=== PATIENT | female | born 1965 | race Caucasian/White ===

== ENCOUNTER → 2022-01-30 07:02 | Outpatient (CLI) | payer OTHER, SELFPAY ==
--- NOTE | 2022-01-30 07:15 | MRI_ITS ---
STUDY: MRI ABDOMEN WITH AND WITHOUT CONTRAST REASON FOR EXAM: Female, 56 years old. LIVER LESION, F/U CT TECHNIQUE: Standardized fat and water weighted pulse sequences were obtained in all 3 orthogonal planes post contrast administration. dotarem 20ml IV was administered for the contrast portion of the examination. COMPARISON: CT scan abdomen and pelvis obtained 12/05/2021. FINDINGS: The visualized lung bases are unremarkable. The visualized portions of the heart are within normal limits. A 1.3 cm area of low signal intensity is visualized in the anterolateral aspect of the right lobe of the liver, segment 8 that was visualized on the prior CT scan this is best demonstrated on axial series 3-2 image 14, on the LAVA series, 1000, 1003 and 1004 on image 56/96 there is gradual increased signal intensity visualized suggestive of increased enhancement suggestive of a hemangioma. No evidence of intrahepatic biliary dilatation is seen. Surgical clips visualized in the gallbladder fossa consistent there is a cholecystectomy. No evidence of extrahepatic biliary dilatation is seen. Normal spleen. Normal pancreas. Normal bilateral adrenal glands. Normal right kidney. Normal left kidney. Small type I hiatus hernia is seen. Normal visualized stomach. Normal visualized small intestine. Normal visualized colon. Normal abdominal aorta. Normal inferior vena cava. Normal retroperitoneum. Normal abdominal wall. Normal osseous structures. MRI/MRI Abd WITH and W/O Contrast IMPRESSION: 1.2 cm right hepatic lobe lesion demonstrates gradual enhancement suggestive of a hemangioma. Electronically Signed: Perez Regalado MD at 14:58 EDT ,
== END ==
DX: K76.9 Liver disease, unspecified (principal)
CPT/HCPCS: 74183; A9575

== ENCOUNTER → 2022-03-06 | Outpatient (CLI) | payer OTHER, SELFPAY | END | disposition home or self-care (01) | PROVIDERS: Referring Provider Obstetrics & Gynecology; Visit Provider Obstetrics & Gynecology | DX: N83.202 Unspecified ovarian cyst, left side (principal) | CPT/HCPCS: 36415; 86304 ==

== ENCOUNTER → 2022-03-15 | Outpatient (CLI) | payer OTHER, SELFPAY ==
--- NOTE | 2022-03-15 11:28 | US_ITS ---
STUDY: ULTRASOUND OF THE FEMALE PELVIS - COMPLETE REASON FOR EXAM: Female, 56 years old. L ovarian cyst LMP: The patient is postmenopausal. TECHNIQUE: Transabdominal and Transvaginal TECHNICAL QUALITY: Adequate. COMPARISON: None. FINDINGS: The uterus is anteverted and is in a midline position. The uterus measures 8.7 cm x 4.7 cm x 3.9 cm. Normal uterine cervix. The endometrium measures 5 mm in thickness, and is hyperechoic. There is no demonstrated endometrial mass. There is a 1.5 cm x 1.3 cm x 1.3 cm fibroid in the body of the uterus. Myometrial echotexture is heterogeneous in appearance. I.U.D. - The patient does not have an I.U.D. The right ovary is visualized. The right ovary measures 1.4 cm x 1.7 cm x 1.3 cm. There is no right ovarian cyst or ovarian mass. There is no visualized right adnexal mass or complex lesion. There is normal arterial and normal venous vascularity. The left ovary is visualized. The left ovary measures 4.4 cm x 4.3 cm x 4.1 cm. There is a 3.1 cm x 4 cm x 3.1 cm left ovarian cyst. There is no visualized left adnexal mass or complex lesion. There is normal arterial and normal venous vascularity. There is no fluid in the cul-de-sac. The pre void volume of the bladder was 58 ml. US/Pelvic (Non ) IMPRESSION: 3.1 cm x 4 cm x 3.1 cm left ovarian cyst. Heterogeneous appearance of the uterus with fibroid change and small uterine fibroid. Electronically Signed: Robert Houser MD at 13:01 EDT ,
--- NOTE | 2022-03-15 11:28 | US_ITS ---
STUDY: ULTRASOUND OF THE FEMALE PELVIS - COMPLETE REASON FOR EXAM: Female, 56 years old. L ovarian cyst LMP: The patient is postmenopausal. TECHNIQUE: Transabdominal and Transvaginal TECHNICAL QUALITY: Adequate. COMPARISON: None. FINDINGS: The uterus is anteverted and is in a midline position. The uterus measures 8.7 cm x 4.7 cm x 3.9 cm. Normal uterine cervix. The endometrium measures 5 mm in thickness, and is hyperechoic. There is no demonstrated endometrial mass. There is a 1.5 cm x 1.3 cm x 1.3 cm fibroid in the body of the uterus. Myometrial echotexture is heterogeneous in appearance. I.U.D. - The patient does not have an I.U.D. The right ovary is visualized. The right ovary measures 1.4 cm x 1.7 cm x 1.3 cm. There is no right ovarian cyst or ovarian mass. There is no visualized right adnexal mass or complex lesion. There is normal arterial and normal venous vascularity. The left ovary is visualized. The left ovary measures 4.4 cm x 4.3 cm x 4.1 cm. There is a 3.1 cm x 4 cm x 3.1 cm left ovarian cyst. There is no visualized left adnexal mass or complex lesion. There is normal arterial and normal venous vascularity. There is no fluid in the cul-de-sac. The pre void volume of the bladder was 58 ml. US/Transvaginal Non- IMPRESSION: 3.1 cm x 4 cm x 3.1 cm left ovarian cyst. Heterogeneous appearance of the uterus with fibroid change and small uterine fibroid. Electronically Signed: Robert Houser MD at 13:01 EDT ,
== END | disposition home or self-care (01) ==
PROVIDERS: Referring Provider Obstetrics & Gynecology; Visit Provider Obstetrics & Gynecology
DX: N83.202 Unspecified ovarian cyst, left side (principal)
CPT/HCPCS: 76830; 76856

== ENCOUNTER 2022-04-04 12:30 | Day surgery (SDC) | payer OTHER, SELFPAY ==
[2022-04-04] VITALS (7 sets, daily range): BP systolic 129–179; BP diastolic 67–89; PULSE 55–67; RESP 14–16; TEMP 36.1–36.3; O2SAT 97–100; BMI 38.0
--- NOTE | 2022-04-04 07:42 | PCM.HP.BLA ---
History and Physical Intake Visit Reasons:?CONSULT D&C Chief Complaint: D&C consult [employer] Required: No Is patient in pain?: No Allergies adhesive tape Adverse Reaction (Verified 03/06/22 09:43) UNKNOWNbupropion Adverse Reaction (Verified 03/06/22 09:43) UNKNOWNclarithromycin [From Biaxin] Adverse Reaction (Verified 03/06/22 09:43) UNKNOWNdoxycycline Adverse Reaction (Verified 03/06/22 09:43) UNKNOWNmorphine Adverse Reaction (Verified 03/06/22 09:43) UNKNOWN Medications aspirin 81 mg tablet,delayed release 81 mg PO DAILY 02/08/22 [History Confirmed 02/15/22] atorvastatin 40 mg tablet 40 mg PO QHS 02/08/22 [History Confirmed 03/06/22] citalopram 40 mg tablet 40 mg PO DAILY 02/08/22 [History Confirmed 03/06/22] levothyroxine 100 mcg capsule 100 mcg PO DAILY 02/08/22 [History Confirmed 03/06/22] Is last menstrual period known: No Post menopausal: Yes Patient : No : No PFSH Medical History?(Updated 03/06/22 @ 10:[address] Kristina Urban MD) Anxiety Atherosclerosis of coronary artery without angina pectoris Elevated LFTs GERD (gastroesophageal reflux disease) Hyperlipidemia Hypothyroidism Liver lesion, left lobe Obesity Shingles Surgical History?(Updated 03/06/22 @ 10:[address] Kristina Urban MD) H/O hernia repair History of appendectomy History of left heart catheterization (04/10/18) Hx of cholecystectomy Family History?(Updated 03/06/22 @ 09:46 by Mayra Martínez) Father Diabetes Heart diseaseMother Diabetes Heart disease Social History?(Updated 03/06/22 @ 09:47 by Mayra Martínez) Smoking Status:? Never smoker alcohol intake:? never substance use type:? does not use caffeine:? Yes what type of physical activity do you participate in:? none seatbelt use:? always do you feel safe at home:? Yes additional social history:? 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 ? HPI CONSULT D&C Details: TAMARA OSMAN is a 56 year old who presents for consultation.? she preivously had evluation by [place] and then due to insurance changes is here for evaluation.? she has a uterus with a polyp and small fibroids, and a left 4 cm ovarian cyst. she has been postmenopausal for 2 years.? she originally was imaged due to side pain which was from shingles and the ct showed the abnormalities and then had an us to confirm.? she denies any pain or vb no abnormal discharge.? she was planning a d and c previously.? her ovarian cyst has been stable.? she has mild menopausal symptoms. Female Reproductive History Menopausal Symptoms: No night sweats Pregancy History ? ? ? 1 ? Elective abortions ? Hx Para ? ? ? 1 ? Spontaneous abortions ? Hx # Term Pregnancies ? Ectopic pregnancies ? Hx # Pregnancies ? Multiple births ? # of living children ? Past Pregnancies Del. Date Name GA/Weeks Outcome Route Bth Weight [facility] Vivienne ? live - full term ? ROS Const Constitutional: Denies fatigue, night sweats, weight gain or weight loss ENT ENT: Reports system reviewed and no additional complaints, except as documented Cardio Card: Denies chest pain Resp Resp: Denies cough or dyspnea GI GI: Reports as per HPI; Denies abdominal pain, constipation, nausea or vomiting : Reports urinary incontinence; Denies nipple discharge, urinary frequency, urinary hesitancy, urinary urgency, vaginal discharge, vaginal dryness, vaginal odor or vaginal pruritus Musc Musc: Denies arthralgias, back pain or muscle weakness Skin Skin/Breast: Denies alopecia, change in hair, dry skin, breast mass, breast pain, breast skin changes or nipple discharge Neuro Neuro: Reports system reviewed and no additional complaints, except as documented Psych Psych: Reports system reviewed and no additional complaints, except as documented Endo Endo: Reports heat intolerance; Denies cold intolerance, excessive sweating or polydipsia Ayush/Lymph Hematologic/Lymphatic: Denies easy bleeding, Reports easy bruising and Denies lymphadenopathy Exam Const General: cooperative, healthy appearing, comfortable, no acute distress and well developed Orientation: alert [facility] Head: normal to inspection and normocephalic Ears: hearing grossly normal bilaterally and external ears normal Nose: external nose normal and nares normal Face and sinus: normal facial exam Neck Neck: normal visual inspection and no lymphadenopathy Thyroid: thyroid normal Chest Chest palpation & inspection: normal inspection of the chest Resp Effort & Inspection: normal respiratory effort Auscultation: clear to auscultation bilaterally Cardio Rate: regular rate Rhythm: regular rhythm Heart Sounds: S1 normal and S2 normal GI Inspection: normal to inspection and non-distended Palpation: soft and no hepatosplenomegaly Musc Other: gross motor intact no deficits, full bilateral strength Skin General: no rashes or lesions noted Neuro General: patient alert, patient awake, moves all extremities and no focal motor deficits Motor: muscle tone normal throughout Extrem General: normal to inspection and no pedal edema Psych Appearance: grossly normal Mental Status: mental status grossly normal Affect: normal affect Speech and Movement: speech and movement normal Coding Level of Care Code Off vis,new,level 4 Diagnoses Endometrial polyp? N84.0 Left ovarian cyst? N83.202 Assessment and Plan Assessment and Plan (1) Endometrial polyp: ?Status:?Acute ?Comment: plan d and c hysteroscopy possible symphion (2) Left ovarian cyst: ?Status:?Acute ?Comment: repeat us. ca125 ordered.? asymptomatic.? exp management. ? ? ? Orders:?Orders: ? Cancer Antigen 125 Today ? ? ? Pelvic (Non ) Today ? ? ? Transvaginal Non- Today ?Plan - Dr. Kristina Urban MD: After discussing the patient's diagnosis and treatment plan options, patient wishes to proceed with surgical management.? I have discussed with the patient the risks, benefits, and alternatives of the procedure which include but are not limited to risks of anesthesia, bleeding, infection, possible damage to bowel, bladder, or surrounding vasculature which could lead to additional surgery to evaluate any complications.? Patient agrees to procedure and wishes to proceed.? ACOG/uptodate references given for additional information regarding procedure.? UPDATE- I have seen the patient and performed any clinically relevant updates to the history and physical exam. Kristina Urban MD
[2022-04-04 13:08] LABS: Absolute Lymphocyte Count 2.35 X10^3/uL (0.83-4.51); Absolute Neutrophil Count 3.2 X10^3/uL (2.0-7.7); Basophil# 0.06 X10^3/uL; Basophil% 0.9 % (0-1); Eosinophil# 0.29 X10^3/uL; Eosinophils% 4.6 % (0-5); Hemoglobin 13.1 g/dL (12.0-15.0); Lymphocyte # 2.35 X10^3/ul (0.83-4.51); Lymphocyte % 36.9 % (19-41); Mean Corp Hgb Conc 33.6 g/dL (32-36); Mean Corpuscular Hgb 29.4 pg (27.0-32.0); Mean Corpuscular Volume 87.4 fL (81-99); Monocyte# 0.44 X10^3/uL; Monocyte% 6.9 % (0-10); NRBC Flagged by Analyzer 0 % (0-5); Neutrophil # 3.22 X10^3/uL (2.7-7.7); Neutrophil % 50.5 % (47-70); POSITIVE MORPHOLOGY YES; Platelet Count 234 K/mm3 (150-450); RBC Distribution Width CV 13.2 % (11.6-14.6); RBC Distribution Width SD 42.3 fl (35.1-43.9); Red Blood Count 4.46 M/mm3 (4.2-5.4); White Blood Count 6.4 K/mm3 (4.4-11.0)
[2022-04-04] MEDS: Lactated Ringers 1,000 ML 125 ML IV (13:10)
[2022-04-04 13:11] LABS: Differential Indicated SCAN CRITERIA MET
[2022-04-04 13:24] LABS: AST(SGOT) 22 U/L (15-37); Alanine Aminotransfer ALT/SGPT 44 U/L (13-56); Albumin, Serum 3.4 g/dL (3.2-5.0); Alkaline Phosphatase 117 U/L (45-117); Anion Gap 5 (5-15); BUN 23 mg/dL (7-18); BUN/Creat Ratio 29.7 RATIO (10-20); Calcium,Total 8.6 mg/dL (8.5-10.1); Chloride 110 mmol/L (98-107); Creatinine, Serum 0.78 mg/dL (0.55-1.02); EST Glomerular Filtration Rate 81 mL/min (>60); Est Glom Filt Rate - Afr Amer 98 mL/min (>60); Estimated Creatinine Clearance 65.03 ml/min; Globulin 3.4 g/dL (2.2-4.2); Glucose 99 mg/dL (74-106); Potassium 4.1 mmol/L (3.5-5.1); Protein, Total 6.8 g/dL (6.4-8.2); Sodium Level 141 mmol/L (136-145)
[2022-04-04 13:32] LABS: Platelet Estimate ADEQUATE (ADEQ); Red Cell Morphology NORM C+C NORMAL (NORM C&C)
--- NOTE | 2022-04-04 14:05 | EMB_PTH ---
PATIENT: TAMARA OSMAN LOC: [facility] – [place] U#:[id number] AGE/SX: 56/F ROOM: RE04/04/[address]: Dr. Kristina Urban MD : 1965 BED: DIS: 04/04/2022 SPEC #: [id number] RECD: 04/05/22 06:47 STATUS: NEISHA MORRIS #: [id number] ELIZABETH: 04/04/22 14:[address]: Kristina Urban DEPT: SURGICAL PATHOLOGY RECD BY: Afia Wu Tissues: A - Endometrium, NOS B - CYST Procedures: Surgery Specimen Level IV HEADER OPERATION: Hysteroscopy, D & C Symphion, excision of vaginal wall cyst PRE-OP DIAGNOSIS: Endometrial polyp TISSUE SUBMITTED: A ? Endometrial curettings, B ? Vaginal wall cyst MICROSCOPIC DIAGNOSIS A. Endometrial curettings: A fragment of myometrium with scant minute fragments of benign endometrial tissue. See comment. B. Vaginal wall cyst, excision: Benign epithelial cyst. CAS:[email or web address] 04/06/2022 COMMENT A. Clinical correlation and appropriate follow up are necessary. MICROSCOPIC DESCRIPTION Slides are reviewed. GROSS DESCRIPTION A - Received in fixative is one container labeled with the patient's name and designated endometrial curettings. The specimen consists of multiple irregular fragments of light perry soft tissue that in aggregate measure 1.7 x 0.5 x 0.2 cm. The specimen is totally submitted in one cassette. B - Received in fixative is one container labeled with the patient's name and designated vaginal wall cyst. The specimen consists of two irregular fragments of glistening perry mucosa that in aggregate measure 2.5 x 1 x 0.3 cm. The specimen is totally submitted in one cassette. / AM:maddi 04/05/2022 TC:5 CPT: 79742 x2
--- NOTE | 2022-04-04 15:29 | OP.PCM_ITS ---
Problems Associated Problem List Diagnoses (1) Endometrial polyp: (2) Left ovarian cyst: (3) Vaginal cyst: Report of Operation Date of Procedure: 04/04/22 Pre-Operative Diagnosis: see problem list Post-Operative Diagnosis: same Surgery/Procedure Performed:: D&C hysteroscopy removal vaginal cyst cystoscopy Description of Surgical Findings:: 4 cm anterior left vaginal wall cyst. green chain puller: None Type of Anesthesia: Local MAC Special Medications: none Specimen's removed: EMC vaginal cyst wall Drains: none Estimated Blood Loss (mL): 50 Fluids Replaced: crystalloid Description of Procedure: Patient was prepped and draped in a normal sterile fashion under MAC anesthesia. A weighted speculum was placed in the vagina and the anterior lip of the cervix was grasped with a single-tooth tenaculum. A paracervical block was placed with 1% lidocaine. Cervix was progressively dilated to allow passage of a 5 mm hysteroscope. The lining was fully visualized and noted to have no significant abnormality as it was noted to be atrophic. Uterine sounded to 8 cm. Curettage was performed and small amount of tissue removed, sent to pathology. Cystoscopy was then performed by filling the bladder and visualizing ureteral spray bilaterally seeing no gross abnormalities although there was a mild appearance of petechiae over some areas of the bladder. The urethra was visualized at full length to make sure there was no communication with the vaginal cyst that had been visualized and none were seen. The vaginal cyst was injected with lidocaine and then a longitudinal incision was made and it was unroofed and marsupialized and partially excised and then the vaginal mucosa was stitched all across circumferentially to obtain hemostasis. All instruments were removed from the vagina and excellent hemostasis was noted. Patient was awoken and taken to recovery in stable condition. Grafts/Implants Used: none Complications none Admit VTE Documentation VTE Present on Admission: No VTE Mechan Device Prophylaxis: SCD's Multi Select Codes Urinary/Genital Urinary/Genital CPT Codes: 22855 Cystoscopy, 75369 REMOVE VAGINA LESION (13987) and 06461 Hysteroscopy,EMC, Polypectomy
--- NOTE | 2022-04-04 15:31 | DCINST_ITS ---
Discharge Instructions Procedure D&C Diet Discharge Diet: No restrictions Activity Discharge Activity: Return to Normal Activity, May Shower and May Take a Tub Bath (after 1 week) May resume sexual activity in: 1-2 weeks Weight Bearing Status: Weight bearing as tolerated Lifting Restrictions: none Dressing / Incision Call your doctor if you observe: Fever of 101 or Higher, Using more than 1 pad per hour, Shortness of breath and Uncontrolled pain Follow Up Care Please Follow Up With: Kristina Urban MD When: Call [phone] to schedule appointment. Test Results: Test results from this visit will be discussed in further detail at your follow- up appointment, if applicable. Discharge Plan Admission Attending Provider: Kristina Urban Primary Care Provider: CHAPINCITO ESCALANTE Discharge Orders/Prescriptions Prescriptions: New oxycodone-acetaminophen [Endocet] 5-325 mg tablet 1 tab PO Q4H PRN (Reason: pain) 7 Days Qty: 10 0RF ibuprofen [ibuprofen] 600 mg tablet 600 mg PO Q6H PRN PRN (Reason: fever or pain) Qty: 30 0RF No Action aspirin [Adult Low Dose Aspirin] 81 mg tablet,delayed release (DR/EC) 81 mg PO DAILY atorvastatin 40 mg tablet 40 mg PO QHS citalopram [Celexa] 40 mg tablet 40 mg PO DAILY levothyroxine 100 mcg capsule 100 mcg PO DAILY multivitamin Tablet 1 tab PO DAILY Referrals / Follow Up: CHAPINCITO ESCALANTE [Other] Disposition Disposition (needs filled in before D/C Order can be placed): Home, Self Care
== END 2022-04-04 16:43 | disposition home or self-care (01) ==
LOC: SDC 12:33 → AC 12:34
PROVIDERS: Referring Provider Obstetrics & Gynecology; Visit Provider Obstetrics & Gynecology
PROC: 0UB98ZZ Excision of Uterus, Via Natural or Artificial Opening Endoscopic (ICD-10-PCS; CPT 58558; principal; 2022-04-04 13:50)
DX: N84.0 Polyp of corpus uteri (principal); N89.8 Other specified noninflammatory disorders of vagina; I25.10 Atherosclerotic heart disease of native coronary artery without angina pectoris; F41.9 Anxiety disorder, unspecified; E03.9 Hypothyroidism, unspecified; E78.5 Hyperlipidemia, unspecified; E66.9 Obesity, unspecified; Z79.82 Long term (current) use of aspirin; Z79.899 Other long term (current) drug therapy; Z68.38 Body mass index [BMI] 38.0-38.9, adult
CPT/HCPCS: 58558; 57135; 80053; 85025; 86850; 86900; 86901; 88304; 88305; J7120